=== PATIENT | male | born 1935 | race Caucasian/White ===

== ENCOUNTER 2021-10-29 09:52 | Inpatient (IN) ==
[2021-10-29 10:38] LABS: Basophils # 0.1 10*3/uL (0.0-0.2); Basophils % 0.5 % (0.0-0.8); Eosinophils # 0.1 10*3/uL (0.0-0.87); Eosinophils % 0.5 % (0.00-10.9); Hematocrit 44.8 VOL% (42.0-52.0); Hemoglobin 15.4 GM/DL (14.0-18.0); Immature Granulocytes % 0.5 %; Immature Granulocytes Absolute 0.06 #; Lymphocytes # 0.8 10*3/uL (1.4-4.0); Lymphocytes % 7.1 % (21.2-54.2); Mean Corpuscular HGB Conc 34.4 GM/DL (32-36); Mean Corpuscular Volume 101.6 FL (87-102); Mean Platelet Volume 10.8 FL (9.6-12.0); Monocytes # 1.2 10*3/uL (0.11-0.8); Neutrophils % 80.4 % (38.7-73.9); Platelet Count 149 T/CUMM (130-400); Red Blood Count 4.41 MC/CUMM (3.8-5.5); Red Cell Distribution Width 13.3 % (9.3-17.3)
[2021-10-29 10:52] LABS: Albumin 3.2 G/DL (3.4-5.0); Bilirubin,Total 0.8 MG/DL (0.20-1.00); Calcium 8.9 MG/DL (8.5-10.1); Osmolality,Calculated 286.1 MOS/KG (273-304); Potassium 4.3 MMOL/L (3.5-5.1); Total Protein 6.7 G/DL (6.4-8.2)
[2021-10-29] MEDS ORDERED: MORPHINE 2 MG/1 ML SYRINGE IV STA (12:01)
[2021-10-29] MEDS ORDERED: ONDANSETRON 4 MG/2 ML VIAL ONE (12:13)
[2021-10-29] MEDS ORDERED: ONDANSETRON 4 MG/2 ML VIAL IV STA (12:17)
[2021-10-29] MEDS ORDERED: ONDANSETRON 4 MG/2 ML VIAL IV PRN (12:46)
[2021-10-29] MEDS ORDERED: LACTULOSE 20 GM/30 ML UDCUP PO PRN (12:46)
[2021-10-29] MEDS ORDERED: GLUCAGON 1 MG VIAL IM PRN (12:46)
[2021-10-29] MEDS ORDERED: ALUMINUM/MAGNES/SIMETH MAX STR 30 ML UDCUP PO PRN (12:46)
[2021-10-29] MEDS ORDERED: DEXTROSE 10% 250 ML BAG IV PRN (12:55)
[2021-10-29] MEDS: LACTATED RINGERS 1,000 ML IV SCH (13:18)
[2021-10-29 13:22] LABS: Thyroid Stimulating Hormone 2.37 uIU/ml (0.358-3.74)
[2021-10-29] MEDS ORDERED: ENOXAPARIN 40 MG/0.4 ML SYRINGE SUBCUT SCH (14:00)
[2021-10-29] MEDS: ursodioL 300 MG CAPSULE PO SCH ×2 (15:36→20:28)
[2021-10-29] MEDS: ACETAMINOPHEN 325 MG TABLET PO PRN (15:36)
[2021-10-29] MEDS ORDERED: HEPARIN 5,000 UNIT/1 ML VIAL IV ONE ×2 (17:36→20:18)
[2021-10-29] MEDS ORDERED: LACTATED RINGERS 1,000 ML IV ONE (17:43)
[2021-10-29] MEDS: HEPARIN DRIP 25,000 UNITS/500 ML PREMIX IV SCH (18:21)
[2021-10-29] MEDS ORDERED: MORPHINE 2 MG/1 ML SYRINGE IV PRN (19:40)
[2021-10-29] MEDS ORDERED: TAMSULOSIN 0.4 MG CAPSULE PO SCH (21:00)
[2021-10-30] MEDS: LACTATED RINGERS 1,000 ML IV SCH ×2 (00:41→11:13)
[2021-10-30 01:14] LABS: Basophils % 0.4 % (0.0-0.8); Eosinophils # 0.2 10*3/uL (0.0-0.87); Eosinophils % 1.6 % (0.00-10.9); Hemoglobin 14.5 GM/DL (14.0-18.0); Immature Granulocytes % 0.4 %; Immature Granulocytes Absolute 0.04 #; Lymphocytes # 1.7 10*3/uL (1.4-4.0); Lymphocytes % 15.8 % (21.2-54.2); Mean Corpuscular HGB Conc 33.7 GM/DL (32-36); Mean Corpuscular Volume 103.4 FL (87-102); Mean Platelet Volume 10.8 FL (9.6-12.0); Monocytes # 1.3 10*3/uL (0.11-0.8); Monocytes % 11.8 % (1.7-12.7); Platelet Count 151 T/CUMM (130-400); Red Blood Count 4.16 MC/CUMM (3.8-5.5); Red Cell Distribution Width 13.5 % (9.3-17.3); White Blood Count 10.8 T/CUMM (4-12)
[2021-10-30 01:34] LABS: Albumin 2.8 G/DL (3.4-5.0); Bilirubin,Total 0.7 MG/DL (0.20-1.00); Calcium 8.9 MG/DL (8.5-10.1); Osmolality,Calculated 280.5 MOS/KG (273-304); Potassium 4.1 MMOL/L (3.5-5.1); Risk Ratio 6.23; Total Protein 6.3 G/DL (6.4-8.2); VLDL Cholesterol 36.8 MG/DL
[2021-10-30] MEDS ORDERED: HEPARIN/NACL 0.9% 2 UNITS/ML 1,000 UNIT/500 ML BAG IV ONE (07:44)
[2021-10-30] MEDS ORDERED: SODIUM CHLORIDE 0.9% 1,000 ML IV SCH ×4 (08:00→09:00)
[2021-10-30] MEDS ORDERED: ALTEPLASE 6 MG in SODIUM CHLORIDE 0.9% 120 ML IV SCH ×2 (08:00→09:00)
[2021-10-30] MEDS: ASPIRIN EC 81 MG TABLET PO SCH (08:13)
[2021-10-30] MEDS ORDERED: fentaNYL 100 MCG/2 ML VIAL ONE (08:15)
[2021-10-30] MEDS ORDERED: MIDAZOLAM 2 MG/2 ML VIAL ONE (08:15)
[2021-10-30] MEDS ORDERED: LORazepam 2 MG/1 ML VIAL IV PRN (08:51)
[2021-10-30] MEDS ORDERED: METOPROLOL SUCCINATE XL 25 MG TABLET PO SCH (09:00)
[2021-10-30] MEDS ORDERED: APIXABAN 5 MG TABLET PO SCH (09:00)
[2021-10-30] MEDS ORDERED: HEPARIN DRIP 25,000 UNITS/500 ML PREMIX IV ONE (09:12)
[2021-10-30] MEDS: HEPARIN DRIP 25,000 UNITS/500 ML PREMIX IV SCH ×2 (09:13→18:28)
[2021-10-30] MEDS: ursodioL 300 MG CAPSULE PO SCH ×3 (10:29→20:34)
[2021-10-30] MEDS: FENOFIBRATE 145 MG TABLET PO SCH (10:29)
[2021-10-30] MEDS: ROSUVASTATIN 10 MG TABLET PO SCH (10:29)
[2021-10-30] MEDS: PANTOPRAZOLE 40 MG TABLET PO SCH (10:29)
[2021-10-30 10:45] LABS: INR 1.1; PT Patient Result 12.2 SECS (10.5-12.0); Partial Thromboplastin Time 84.3 SECS (23.7-32.9)
[2021-10-30] MEDS: TIMOLOL 0.5% OPH SOLN 5 ML BOTTLE BOTH EYES SCH (11:11)
[2021-10-30 20:09] LABS: INR 1.2; PT Patient Result 12.7 SECS (10.5-12.0)
[2021-10-30] MEDS: DOCUSATE SODIUM 100 MG CAPSULE PO PRN (20:34)
[2021-10-30 20:50] LABS: Partial Thromboplastin Time 92.7 SECS (23.7-32.9)
[2021-10-31] MEDS: HEPARIN DRIP 25,000 UNITS/500 ML PREMIX IV SCH (01:15)
[2021-10-31 03:27] LABS: Basophils # 0.1 10*3/uL (0.0-0.2); Basophils % 0.8 % (0.0-0.8); Eosinophils # 0.3 10*3/uL (0.0-0.87); Eosinophils % 2.7 % (0.00-10.9); Hematocrit 43.7 VOL% (42.0-52.0); Hemoglobin 14.8 GM/DL (14.0-18.0); Immature Granulocytes % 0.3 %; Immature Granulocytes Absolute 0.03 #; Lymphocytes # 1.9 10*3/uL (1.4-4.0); Mean Corpuscular HGB Conc 33.9 GM/DL (32-36); Mean Corpuscular Volume 102.8 FL (87-102); Mean Platelet Volume 10.8 FL (9.6-12.0); Monocytes # 1.1 10*3/uL (0.11-0.8); Monocytes % 11.6 % (1.7-12.7); Neutrophils % 64.6 % (38.7-73.9); Platelet Count 163 T/CUMM (130-400); Red Blood Count 4.25 MC/CUMM (3.8-5.5); Red Cell Distribution Width 13.3 % (9.3-17.3); White Blood Count 9.4 T/CUMM (4-12)
[2021-10-31 03:38] LABS: INR 1.1; PT Patient Result 12.4 SECS (10.5-12.0)
[2021-10-31 03:43] LABS: Albumin 2.7 G/DL (3.4-5.0); Bilirubin,Total 0.7 MG/DL (0.20-1.00); Calcium 8.9 MG/DL (8.5-10.1); Osmolality,Calculated 281.4 MOS/KG (273-304); Potassium 4.3 MMOL/L (3.5-5.1); Total Protein 6.5 G/DL (6.4-8.2)
[2021-10-31] MEDS: PANTOPRAZOLE 40 MG TABLET PO SCH (09:13)
[2021-10-31] MEDS: ROSUVASTATIN 10 MG TABLET PO SCH (09:13)
[2021-10-31] MEDS: TIMOLOL 0.5% OPH SOLN 5 ML BOTTLE BOTH EYES SCH (09:14)
[2021-10-31] MEDS: APIXABAN 5 MG TABLET PO SCH ×2 (09:14→20:20)
[2021-10-31] MEDS: ASPIRIN EC 81 MG TABLET PO SCH (09:14)
[2021-10-31] MEDS: FENOFIBRATE 145 MG TABLET PO SCH (09:14)
[2021-10-31] MEDS: ursodioL 300 MG CAPSULE PO SCH ×3 (09:14→20:20)
[2021-10-31 10:15] LABS: Partial Thromboplastin Time 75.8 SECS (23.7-32.9)
[2021-10-31] MEDS: KETOCONAZOLE 2% CREAM 30 GM TUBE TOP SCH ×2 (10:40→20:27)
[2021-10-31] MEDS ORDERED: TUBERCULIN SKIN TEST 0.1 ML SYRINGE INTRADERM ONE (11:02)
[2021-10-31] MEDS: ACETAMINOPHEN 325 MG TABLET PO PRN (14:00)
[2021-10-31] MEDS: DOCUSATE SODIUM 100 MG CAPSULE PO PRN (20:20)
[2021-10-31 20:55] LABS: Partial Thromboplastin Time 30.8 SECS (23.7-32.9)
[2021-11-01 05:04] LABS: Basophils # 0.1 10*3/uL (0.0-0.2); Basophils % 0.6 % (0.0-0.8); Eosinophils # 0.3 10*3/uL (0.0-0.87); Eosinophils % 2.8 % (0.00-10.9); Hematocrit 40.1 VOL% (42.0-52.0); Hemoglobin 13.6 GM/DL (14.0-18.0); Immature Granulocytes % 0.5 %; Immature Granulocytes Absolute 0.05 #; Lymphocytes # 1.6 10*3/uL (1.4-4.0); Lymphocytes % 16.5 % (21.2-54.2); Mean Corpuscular HGB Conc 33.9 GM/DL (32-36); Mean Corpuscular Volume 103.9 FL (87-102); Mean Platelet Volume 10.7 FL (9.6-12.0); Monocytes # 1.2 10*3/uL (0.11-0.8); Monocytes % 12.7 % (1.7-12.7); Neutrophils % 66.9 % (38.7-73.9); Platelet Count 169 T/CUMM (130-400); Red Blood Count 3.86 MC/CUMM (3.8-5.5); Red Cell Distribution Width 13.5 % (9.3-17.3); White Blood Count 9.6 T/CUMM (4-12)
[2021-11-01 05:26] LABS: Osmolality,Calculated 278.7 MOS/KG (273-304); Potassium 4.4 MMOL/L (3.5-5.1)
[2021-11-01 06:55] VITALS: BP 121/69
[2021-11-01] MEDS ORDERED: allopurinoL 300 MG TABLET PO SCH (09:00)
[2021-11-01] MEDS: ursodioL 300 MG CAPSULE PO SCH (09:18)
[2021-11-01] MEDS: ASPIRIN EC 81 MG TABLET PO SCH (09:18)
[2021-11-01] MEDS: FENOFIBRATE 145 MG TABLET PO SCH (09:19)
[2021-11-01] MEDS: APIXABAN 5 MG TABLET PO SCH (09:19)
[2021-11-01] MEDS: ROSUVASTATIN 10 MG TABLET PO SCH (09:19)
[2021-11-01] MEDS: DOCUSATE SODIUM 100 MG CAPSULE PO PRN (09:19)
[2021-11-01] MEDS: PANTOPRAZOLE 40 MG TABLET PO SCH (09:19)
[2021-11-01] MEDS: TIMOLOL 0.5% OPH SOLN 5 ML BOTTLE BOTH EYES SCH (09:20)
[2021-11-01] MEDS: KETOCONAZOLE 2% CREAM 30 GM TUBE TOP SCH (09:20)
[2021-11-06] MEDS ORDERED: APIXABAN 5 MG TABLET PO SCH (09:00)
== END 2021-11-01 10:10 | DRG 167 ==
LOC: EDUNIT# → EDBD → N.ED 09:52 → SUATTDRO 12:46 → N.EDINP 12:46 → N.TELES 13:39 → N.CC 17:44
PROVIDERS: ADMIT Internal Medicine; ATTEND Internal Medicine